=== PATIENT | male | born 1995 | race Caucasian/White ===

== ENCOUNTER 2024-07-14 02:29 | Emergency (ER) | payer MEDICAID, SELFPAY ==
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
[2024-07-14 02:44] VITALS: BMI 28.0
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
[2024-07-14 02:58] VITALS: BP 00/00; PULSE 0; RESP 0; TEMP -17.7; TEMP 0
--- NOTE | 2024-07-14 02:58 | PC.NURSE ---
unable to obtain vitals or any interventions at this time
== END 2024-07-14 03:00 ==
PROVIDERS: Emergency Provider Internal Medicine
DX: F10.129 Alcohol abuse with intoxication, unspecified (principal); S00.83XA Contusion of other part of head, initial encounter; W51.XXXA Accidental striking against or bumped into by another person, initial encounter; Y93.89 Activity, other specified; Y92.9 Unspecified place or not applicable; Y99.9 Unspecified external cause status; Z65.3 Problems related to other legal circumstances
CPT/HCPCS: 99282